=== PATIENT | male | born 1965 | race Two or more races ===

== ENCOUNTER 2025-04-30 14:26 | Inpatient (IN) | payer OTHER ==
[~2025-04-30] VITALS: Ht 175.3 cm; Wt 86.2 kg
[~2025-04-30 14:26] MED LIST: DOLOGEN CAPLET1 EACH PO; LIPITOR20 MG; PNEU16DI2; TUSSIONEX PENNKI5 ML PO; ZITHROMAX TRI-500 MG PO
[2025-04-30] MEDS ORDERED: TAMS0.4C PO (15:31)
[2025-04-30] MEDS ORDERED: CRESTOR40 MG (15:31)
[2025-04-30] MEDS ORDERED: FAMOTIDINE/PF 20 MG in 0.9 % SODIUM CHLORIDE 8 ML IV PUSH STA (16:19)
[2025-04-30] MEDS ORDERED: KETOROLAC TROMETHAMINE 30 MG VIAL ONE (16:28)
[2025-04-30] MEDS ORDERED: FAMOTIDINE/PF 20 MG/2 ML VIAL ONE ×2 (16:29→22:36)
[2025-04-30] MEDS ORDERED: KETOROLAC TROMETHAMINE 30 MG VIAL IV ONE (16:30)
[2025-04-30] MEDS ORDERED: 0.9 % SODIUM CHLORIDE 1,000 ML IV SCH ×2 (16:30→20:30)
[2025-04-30] MEDS ORDERED: BARIUM SULFATE 450 ML ORAL.SUSP PO ONE (16:44)
[2025-04-30 17:42] LABS: BILIRUBIN TOTAL 1.36 mg/dL (0.3-1.2); BILIRUBIN,CONJUGATED 0.29 mg/dL (0.0-0.2); BILIRUBIN,UNCONJUGATED 1.07 mg/dL (0.0-0.6); CALCIUM 9.4 mg/dL (8.5-10.1); CREATININE SERUM 0.71 mg/dL (0.70-1.30); GFR 113.17; GLOBULINA 3.4 G/DL (2.4-3.5); POTASSIUM 4.22 mEq/L (3.5-5.1); TOTAL PROTEIN 7.4 gm/dL (6.4-8.2)
[2025-04-30 19:23] LABS: BASO % 0.4 % (0.1-1.2); EOS # 0.02 (0.04-0.54); EOS % 0.1 % (0.7-7.0); HEMATOCRIT 40.9 % (40.1-51.0); LYMPH # 1.96 (1.18-3.74); LYMPH % 10.3 % (19.3-53.1); MEAN CORPUSCULAR HEMOGLOBIN 34.8 pg (25.6-32.2); MONO # 1.87 (0.24-0.82); MONO % 9.8 % (4.7-12.5); NEUT # 15.03 (1.56-6.13); PLATELET COUNT 210 K/uL (163-369); RED BLOOD COUNT 4.28 M/uL (4.63-6.08); RED CELL DISTRIBUTION WIDTH 11.9 % (11.6-14.4)
[2025-04-30 19:29] LABS: HEMOGLOBIN 14.9 g/dL (13.7-17.5)
[2025-04-30] MEDS ORDERED: PIPERACILLIN/TAZOBACTAM SODIUM 3.375 GM in 0.9 % SODIUM CHLORIDE 100 ML IV SCH (19:39)
[2025-04-30] MEDS ORDERED: MORPHINE SULFATE 4 MG/ML CARTRIDGE IV PRN (20:30)
[2025-04-30] MEDS ORDERED: ONDANSETRON HCL 4 MG in 0.9 % SODIUM CHLORIDE 50 ML IV PRN (20:30)
[2025-04-30] MEDS ORDERED: ACETAMINOPHEN 500 MG GEL..CAP PO PRN (20:30)
[2025-04-30 22:53] VITALS: BP 127/85
[2025-04-30 23:22] LABS: COVID-19 AG NEGATIVE (NEGATIVE)
[2025-05-01] MEDS ORDERED: PIPERACILLIN/TAZOBACTAM SODIUM 3.375 GM VIAL IV ONE ×3 (00:03→16:56)
[2025-05-01 01:44] VITALS: BP 130/77; O2SAT 97
[2025-05-01 03:02] VITALS: BP 136/79; O2SAT 99
[2025-05-01 05:56] LABS: INR 1.28; PARTIAL THROMBOPLASTIN TIME 31.6 SECONDS (22.0-34.0); PROTHROMBIN TIME 13.7 SECONDS (9.0-11.5)
[2025-05-01 06:55] LABS: BASO % 0.3 % (0.1-1.2); EOS # 0.02 (0.04-0.54); EOS % 0.1 % (0.7-7.0); HEMATOCRIT 36.8 % (40.1-51.0); HEMOGLOBIN 13.4 g/dL (13.7-17.5); LYMPH # 1.85 (1.18-3.74); MONO # 1.64 (0.24-0.82); MONO % 10.6 % (4.7-12.5); NEUT # 11.85 (1.56-6.13); NEUT % 76.7 % (34.0-71.1); PLATELET COUNT 172 K/uL (163-369); RED BLOOD COUNT 3.94 M/uL (4.63-6.08); RED CELL DISTRIBUTION WIDTH 11.6 % (11.6-14.4)
[2025-05-01] MEDS ORDERED: TAMSULOSIN HCL 0.4 MG CAP PO SCH (09:00)
[2025-05-01] MEDS ORDERED: FAMOTIDINE/PF 20 MG in 0.9 % SODIUM CHLORIDE 8 ML IV PUSH SCH (09:00)
[2025-05-01 09:57] LABS: ERYTHROCYTE SEDIMENTATION RATE 13 mm/hr (0-20)
[2025-05-01] MEDS ORDERED: POVIDONE-IODINE 118 ML BOTT TOP ONE (13:02)
[2025-05-01] MEDS ORDERED: LIDOCAINE HCL 1%/EPINEPHRINE 20ML VIAL IJ ONE (13:02)
[2025-05-01] MEDS ORDERED: BUPIVACAINE HCL/MPF 0.5% 30ML VIAL ONE (13:02)
[2025-05-01 14:41] VITALS: BP 119/82; O2SAT 97
[2025-05-01] MEDS ORDERED: MORPHINE SULFATE 4 MG/ML VIAL IV ONE (16:20)
[2025-05-01 18:58] VITALS: BP 131/79; O2SAT 95
[2025-05-02 00:42] VITALS: BP 125/76; O2SAT 92
[2025-05-02 08:10] VITALS: BP 110/69; O2SAT 97
[2025-05-02 10:23] LABS: BASO % 0.4 % (0.1-1.2); EOS # 0.03 (0.04-0.54); EOS % 0.2 % (0.7-7.0); HEMOGLOBIN 13.7 g/dL (13.7-17.5); LYMPH # 1.34 (1.18-3.74); LYMPH % 9.2 % (19.3-53.1); MEAN CORPUSCULAR HEMOGLOBIN 34.2 pg (25.6-32.2); MONO # 0.92 (0.24-0.82); MONO % 6.3 % (4.7-12.5); NEUT # 12.08 (1.56-6.13); NEUT % 83.4 % (34.0-71.1); PLATELET COUNT 183 K/uL (163-369); RED BLOOD COUNT 4.01 M/uL (4.63-6.08); RED CELL DISTRIBUTION WIDTH 11.9 % (11.6-14.4)
[2025-05-02 10:52] LABS: CALCIUM 8.5 mg/dL (8.5-10.1); CREATININE SERUM 0.58 mg/dL (0.70-1.30); GFR 142.91; MAGNESIUM 2.2 mg/dL (1.8-2.4); PHOSPHOROUS 2.3 mg/dL (2.5-4.9); POTASSIUM 3.68 mEq/L (3.5-5.1)
[2025-05-02] MEDS ORDERED: OxyCODONE HCL 5 MG TABLET (ROXICODONE) PO PRN (13:00)
[2025-05-02] MEDS ORDERED: GABAPENTIN 100 MG CAPSULE PO NR (13:30)
[2025-05-02] MEDS ORDERED: POTASSIUM PHOS,M-BASIC-D-BASIC 3 MM/ML VIAL IV ONE (16:00)
[2025-05-02 16:44] VITALS: BP 122/77; O2SAT 96
[2025-05-02] MEDS ORDERED: GABAPENTIN 100 MG CAPSULE PO SCH (17:00)
[2025-05-02] MEDS ORDERED: GABAPENTIN 300 MG CAPSULE PO SCH (21:00)
[2025-05-03] VITALS: BP 132/90
[2025-05-03 07:47] LABS: BASO % 0.4 % (0.1-1.2); EOS # 0.05 (0.04-0.54); EOS % 0.3 % (0.7-7.0); HEMATOCRIT 47.2 % (40.1-51.0); HEMOGLOBIN 16.7 g/dL (13.7-17.5); LYMPH # 2.17 (1.18-3.74); LYMPH % 12.1 % (19.3-53.1); MEAN CORPUSCULAR HEMOGLOBIN 34.2 pg (25.6-32.2); MONO # 1.45 (0.24-0.82); MONO % 8.1 % (4.7-12.5); NEUT % 78.7 % (34.0-71.1); PLATELET COUNT 285 K/uL (163-369); RED BLOOD COUNT 4.88 M/uL (4.63-6.08); RED CELL DISTRIBUTION WIDTH 11.8 % (11.6-14.4)
[2025-05-03 08:10] LABS: CALCIUM 9.2 mg/dL (8.5-10.1); CREATININE SERUM 0.71 mg/dL (0.70-1.30); GFR 113.17; MAGNESIUM 2.2 mg/dL (1.8-2.4); PHOSPHOROUS 2.6 mg/dL (2.5-4.9); POTASSIUM 4.29 mEq/L (3.5-5.1)
[2025-05-03 08:41] VITALS: BP 140/93; O2SAT 96
[2025-05-03] MEDS ORDERED: ENOXAPARIN SODIUM 40 MG/0.4 ML SYRINGE SUBCUTANEO SCH (09:00)
[2025-05-03 15:30] VITALS: BP 125/82; O2SAT 96
[2025-05-03] MEDS ORDERED: METOCLOPRAMIDE HCL 5 MG/ML VIAL IV SCH (17:00)
[2025-05-03] MEDS ORDERED: SIMETHICONE 125 MG CAPSULE PO SCH (17:00)
[2025-05-03] MEDS ORDERED: SUCRALFATE 1 G TABLET PO SCH (17:00)
[2025-05-03] MEDS ORDERED: POLYETHYLENE GLYCOL 3350 17 GM BLIST.PACK PO SCH (21:00)
[2025-05-04] VITALS: BP 115/72; O2SAT 96
[2025-05-04 07:51] LABS: BASO % 0.8 % (0.1-1.2); EOS % 2.2 % (0.7-7.0); HEMATOCRIT 35.9 % (40.1-51.0); HEMOGLOBIN 12.6 g/dL (13.7-17.5); LYMPH # 1.85 (1.18-3.74); LYMPH % 19.9 % (19.3-53.1); MEAN CORPUSCULAR HEMOGLOBIN 33.6 pg (25.6-32.2); MONO % 11.8 % (4.7-12.5); NEUT # 6.04 (1.56-6.13); PLATELET COUNT 240 K/uL (163-369); RED BLOOD COUNT 3.75 M/uL (4.63-6.08)
[2025-05-04 08:07] LABS: CALCIUM 7.9 mg/dL (8.5-10.1); CREATININE SERUM 0.62 mg/dL (0.70-1.30); GFR 132.33; PHOSPHOROUS 2.8 mg/dL (2.5-4.9); POTASSIUM 3.8 mEq/L (3.5-5.1)
[2025-05-04 08:21] VITALS: BP 111/72; O2SAT 97
[2025-05-04] MEDS ORDERED: LACTOBACILLUS ACIDOPHILUS 1 CAP CAP PO SCH (09:00)
[2025-05-04] MEDS ORDERED: AMOX-CLAV 875-1 EAC1 PO (10:47)
[2025-05-04] MEDS ORDERED: INTESTINEX680 M2 PO (10:48)
[2025-05-04] MEDS ORDERED: TAMS0.4C PO (10:48)
[2025-05-04] MEDS ORDERED: GABAPENTIN300 MG PO (10:49)
== END 2025-05-04 13:02 | disposition home or self-care (01) | DRG 398 ==
LOC: ER 14:29 → SURG 21:23
PROVIDERS: General Practice; Specialist; ADMIT Internal Medicine Geriatric Medicine; ATTEND Internal Medicine Geriatric Medicine
PROC: BW21ZZZ Computerized Tomography (CT Scan) of Abdomen and Pelvis (ICD-10-PCS; 2025-04-30)
PROC: 0DTJ4ZZ Resection of Appendix, Percutaneous Endoscopic Approach (ICD-10-PCS; principal; 2025-05-01 13:15)
DX: K35.80 Unspecified acute appendicitis (principal); K56.7 Ileus, unspecified; K91.89 Other postprocedural complications and disorders of digestive system; E78.00 Pure hypercholesterolemia, unspecified; N40.0 Benign prostatic hyperplasia without lower urinary tract symptoms; F10.90 Alcohol use, unspecified, uncomplicated; E78.5 Hyperlipidemia, unspecified